=== PATIENT | female | born 1995 | race Caucasian/White ===

== ENCOUNTER → 2020-08-05 | Outpatient (CLI) | payer OTHER ==
--- NOTE | 2020-08-05 11:19 | REP ---
INDICATION: N63.20 LT BREAST LUMP,N64.4 MASTALGIA. Lump with pain 1 o'clock position 6 cm from the nipple. Present x1 month. COMPARISON: None. TECHNIQUE: Targeted left breast scanning is performed from 12:00 to 2:00 about the palpable area. FINDINGS: Heterogeneous fibroglandular background echotexture is seen. A few slightly prominent retroareolar ducts are noted. No mass or cyst is apparent. No acoustic shadowing seen. IMPRESSION: BI-RADS category 2 benign sonographic findings. Clinical follow-up is advised. This patient's estimated Tyrer-Cuzick lifetime risk assessment for breast cancer is 12.2%. <Electronically signed by Demar Melendez > 08/05/20 [id number]
== END ==
LOC: M WHC 07:00
PROVIDERS: ATTEND Advanced Practice Midwife
DX: N63.20 Unspecified lump in the left breast, unspecified quadrant (principal); N64.4 Mastodynia

== ENCOUNTER → 2020-08-11 | Outpatient (REF) | payer OTHER | LOC: M SFHCWAGY 09:59 | PROVIDERS: ATTEND Advanced Practice Midwife | DX: Z12.4 Encounter for screening for malignant neoplasm of cervix (principal) ==